=== PATIENT | male | born 1975 | race Caucasian/White ===

== ENCOUNTER 2022-06-09 06:55 | Day surgery (SDC) | payer OTHER ==
[~2022-06-09] VITALS: Ht 165.1 cm; Wt 77.7 kg
[2022-06-09] VITALS (236 sets, daily range): BP systolic 79–145; BP diastolic 42–105
--- NOTE | 2022-06-09 06:55 | NUR ---
Patient arrived to the [facility] suite, identification and demographics confirmed. Patient to room 10, AAO, ambulatory, vitals obtained, ID/allergy/fall bands placed, changed into hospital gown, TRAVIS hose, and non-slip socks. Procedure and timeline explained for treatment and discharge. All questions answered and the patient presents no concerns at this time.
--- NOTE | 2022-06-09 07:38 | NUR ---
Dr. Bales telephoned with patient intake information including usage, dose, last dose/time taken and initial vital signs. Patient history and allergies reviewed with MD. Orders received for 15 mg PO Valium and 0.3 mg PO Clonidine now. Will reassess per protocol in 1.5 hours and update MD withassessment and vitals.
--- NOTE | 2022-06-09 08:00 | NUR ---
Patient medicated per MD orders. In addition to Clonidine and Valium, patient received 1000 mcg B12 PO, 20 mg Pepcid PO, and Scopolamine TD patch. Medication indication and education provided prior to adminstration.
[2022-06-09 08:18] LABS: BASO% 0.6 % (0-3); EOS% 2.1 % (0-8); HEMATOCRIT 47.5 % (39.0-50.0); HEMOGLOBIN 15.3 g/dl (14.0-18.0); LYMPH% 30.5 % (15-41); MEAN CELL VOLUME 91.5 fL CALC (80.0-100.0); MEAN CORPUSCULAR HGB 29.5 pG CALC (26.0-32.0); MEAN CORPUSCULAR HGB CONC 32.2 g/dL CAL (32.0-36.0); MONO% 10.1 % (2-13); NEUT# 3.84 thou/uL (1.82-7.42); NEUT% 56.7 % (42-76); RED BLOOD COUNT 5.19 mill/uL (4.70-6.10); RED CELL DISTRI WIDTH 12.9 % (11.5-15.5)
[2022-06-09 08:23] LABS: ALBUMIN 4.4 g/dL (3.2-5.0); ALKALINE PHOSPHATASE 58 u/l (38-126); ANION GAP 12 (6-22 (CALC)); BILIRUBIN, TOTAL 0.9 mg/dL (0.2-1.3); BUN 10 mg/dL (9-20); BUN/CREATININE RATIO 11 (12-20 (CALC)); CARBON DIOXIDE 31 mmol/l (22-30); CHLORIDE 101 mmol/l (95-108); GFR FOR AFR.AMER. > 60 ML/MIN (>=60 (CALC)); GFR OTHER RACES > 60 ML/MIN (>=60 (CALC)); MAGNESIUM 2.2 mg/dL (1.6-2.3); POTASSIUM 4.2 mmol/l (3.5-5.1); SGOT/AST 26 u/l (17-59); SODIUM 140 mmol/l (137-146); TOTAL PROTEIN 7.2 g/dL (6.3-8.2)
--- NOTE | 2022-06-09 08:40 | NUR ---
Patient resting comfortably in bed. Easily aroused, maintains focus, and drifts back to sleep. No signs of active withdrawal or distress noted at this time. Continuous SPO2, rhythm, and respiratory monitoring initiated. IVF @ 250 mL/HR, room air, VSS.
--- NOTE | 2022-06-09 09:30 | NUR ---
MD updated with 1.5 hour reassessment. Patient sleeping and vital signs are within pre-treatment parameters. No additional Clonidine or Valium at this time. Continuous monitoring in place.
--- NOTE | 2022-06-09 10:15 | NUR ---
Patient resting comfortably in bed. Easily aroused, maintains focus, and drifts back to sleep. No signs of withdrawal or distress noted at this time.
--- NOTE | 2022-06-09 10:45 | NUR ---
Nebulized treatment and Protonix administered per orders. Patient easily aroused, follows commands, appropriate conversation, reports no distress or withdrawal symtoms. Induction to begin in approximately 15 minutes. -
--- NOTE | 2022-06-09 11:15 | NUR ---
Induction Note Patient to [facility] procedure room 10. Time out performed at 1115, patient placed on diagnostic cardiac sonographer, Letty hugger, and bilateral wrist restraints were applied for ET tube protection. Versed 5mg given IV push at 1116, tourniquet applied to RIGHT arm, lidocaine 100 mg IVP given at 1119, followed by Rocuronium 10mg IVP at 1119 and held for 45 seconds. Propofol 180 mg IVP given at 1120. Succinylcholine 180 mg IVP at 1121. Smooth intubation with 7.5 ETT @ 22L at 1122. Positive color change on CO2 indicator. Positive auscultation bilaterally for air exchange. Patient placed on ventilator for spontaneous ventilation. Placed on Propofol IV drip at 1122. OG inserted at 1125. Positive air on epigastric auscultation. Positive gastric content. Stomach washed at this time.
--- NOTE | 2022-06-09 11:40 | NUR ---
OG close note Stomach washed at this time. Naltrexone 50 mg with Clonidine 0.1 mg via OG tube. OG will be clamped for 45 minutes.
--- NOTE | 2022-06-09 12:25 | NUR ---
OG open note OG open at this time. Gastric content draining into drainage bag. OG to drain for 45 minutes. Propofol will be titrated down based on patient.
--- NOTE | 2022-06-09 13:30 | NUR ---
OG close note Stomach washed at this time. Naltrexone 50 mg with Clonidine 0.1 mg via OG tube. OG will be clamped for 45 minutes.
[2022-06-09] MEDS ORDERED: ALPRAZOLAM0.5 MG PO (14:18)
[2022-06-09] MEDS ORDERED: LOTREL1 CA4 PO (14:19)
--- NOTE | 2022-06-09 15:00 | NUR ---
OG close note Stomach washed at this time. Naltrexone 50 mg with Clonidine 0.1 mg via OG tube. OG will be clamped for 45 minutes.
[2022-06-09] MEDS ORDERED: NALTREXONE50 MG PO (15:50)
[2022-06-09] MEDS ORDERED: KLONOPIN2 MG PO (15:50)
[2022-06-09] MEDS ORDERED: CLONIDINE0.1 MG PO (15:50)
--- NOTE | 2022-06-09 16:55 | NUR ---
OG close note Stomach washed at this time. Naltrexone 12.5 mg with Clonidine 0.1 mg via OG tube. OG will be clamped for 45 minutes.
--- NOTE | 2022-06-09 17:50 | NUR ---
Extubation note Closing medications given Benadryl 50mg IV push, Decadron 10mg IV push,Magnesium 4 grams IV, Zofran 8mg IV push, Octreotide 100mcg SC. Stomach washed out prior to extubation. Suctioned gastric content. OG removed. Patient extubated. Propofol Discontinued. Wrist restraints removed. Letty hugger Removed. See ANR Moderate sedate recovery record for further notes and assessment.
--- NOTE | 2022-06-09 18:50 | NUR ---
Pt transported to [place] via stretcher in no distress.
--- NOTE | 2022-06-09 19:00 | NUR ---
BEDSIDE REPORT RECEIVED FROM JOSE SOSA. PATIENT RESTING, EYES CLOSED. VSS, 2L/NC SATURATION 95%. NO DISTRESS NOTED. BED IN LOW POSITION, LOCKED AND ALARM ACTIVATED.
--- NOTE | 2022-06-09 23:52 | NUR ---
C/O BILATERAL LOWER EXTREMITY PAIN, TORADOL ADMINISTERED. GIVEN SOFT DRINK PER REQUEST, TOLERATED WELL. NO FURTHER CONCERNS EXPRESSED. CALL LIGHT WITHIN REACH.
[2022-06-10 04:05] VITALS: BP 103/67
--- NOTE | 2022-06-10 04:48 | NUR ---
ASSISTED TO RESTROOM, VOID X1, SMALL AMOUNT OF BLOOD NOTED IN URINE. PT VERBALIZES DISCOMFORT UPON URINATION, PT HAD URINARY CATHETER DURING PROCEDURE. NO FURTHER CONCERNS EXPRESSED AT THIS TIME.
[2022-06-10 06:09] LABS: BASO% 0.1 % (0-3); HEMOGLOBIN 14.3 g/dl (14.0-18.0); IMMATURE GRANULOCYTES 0.1 % (0.0-5.0); LYMPH% 9.5 % (15-41); MEAN CORPUSCULAR HGB 29.2 pG CALC (26.0-32.0); MEAN CORPUSCULAR HGB CONC 31.8 g/dL CAL (32.0-36.0); MONO% 2.5 % (2-13); NEUT# 7.06 thou/uL (1.82-7.42); NEUT% 87.8 % (42-76); RED BLOOD COUNT 4.89 mill/uL (4.70-6.10); RED CELL DISTRI WIDTH 12.8 % (11.5-15.5)
[2022-06-10 06:26] LABS: ALBUMIN 3.8 g/dL (3.2-5.0); ALKALINE PHOSPHATASE 45 u/l (38-126); ANION GAP 12 (6-22 (CALC)); BILIRUBIN, TOTAL 0.6 mg/dL (0.2-1.3); BUN 14 mg/dL (9-20); BUN/CREATININE RATIO 14 (12-20 (CALC)); CARBON DIOXIDE 25 mmol/l (22-30); CHLORIDE 107 mmol/l (95-108); GFR FOR AFR.AMER. > 60 ML/MIN (>=60 (CALC)); GFR OTHER RACES > 60 ML/MIN (>=60 (CALC)); MAGNESIUM 2.5 mg/dL (1.6-2.3); POTASSIUM 4.8 mmol/l (3.5-5.1); SGOT/AST 25 u/l (17-59); SODIUM 138 mmol/l (137-146); TOTAL PROTEIN 6.3 g/dL (6.3-8.2)
--- NOTE | 2022-06-10 07:18 | NUR ---
PT RESTING IN LOW FOWLERS POSITION. PT RESTING WITH EYES CLOSED . RESPIRATIONS ON ROOM AIR NONLABORED BREATHING. IV SITE INFUSING WITH LACTATED RINGERS. ALL SAFETY PRECAUTIONS IN PLACE WITH BEDALARM ACTIVE.
[2022-06-10 07:58] VITALS: BP 96/59
--- NOTE | 2022-06-10 12:38 | NUR ---
PT STATED FEELING WELL PT UP SELF AMBULATORY. PT WALKING UP AND DOWN HALLWAY. PT STATED FEELING WELL.
[2022-06-10 14:00] VITALS: BP 101/65
--- NOTE | 2022-06-10 16:14 | NUR ---
PT RESTING IN HIGH FOWLERS POSITION. ONE IV REMOVED FROM PT ONE REMAINING PENDING DISCHARGE FROM FACILITY. ALL SAFETY PRECAUTIONS IN PLACE.
--- NOTE | 2022-06-10 17:13 | NUR ---
Discharge instructions given. Patient verbalizes understanding of same. Discharged in stable condition via Ambulatory to Home with staff. All belongings sent with pt.IV REMOVED FROM BOTH ARMS .
--- NOTE | 2022-06-10 17:31 | NUR ---
PT AMBULATORY TO WAITING AREA WITH STEADY GAIT , SMILING AND CONVERSIVE. JC AT SIDE. DISCUSSED D/C MEDS,DIET,ACTIVITY, ADVERSE SX. mEDS GIVEN. PT LEFT AMBULATORY WITH STEADY GAIT IN CARE OF SPOUSE
== END 2022-06-10 17:04 | disposition home or self-care (01) | DRG 897 ==
LOC: MS2 06:55 → ANR 06:55 → MS2 18:54 → ANR 06-10 17:04
PROVIDERS: ATTEND Anesthesiology Critical Care Medicine
DX: F11.20 Opioid dependence, uncomplicated (principal)
CPT/HCPCS: J2354; J3475